=== PATIENT | female | born 1990 | race Caucasian/White ===

== ENCOUNTER 2019-05-11 20:15 | Emergency (ER) | payer BC, MEDICAID ==
[~2019-05-11 20:15] MED LIST: INSU100V26 SQ
--- NOTE | 2019-05-11 20:26 | NUR ---
Pt called from waiting room, no answer. Pt not found in ED waiting room, ED bathroom.
--- NOTE | 2019-05-11 20:48 | NUR ---
Pt called from waiting room, no answer; pt not found in ED waiting room or ED bathroom or outside ED entrance
--- NOTE | 2019-05-11 20:50 | NUR ---
Pt assumed to have left without being seen.
== END 2019-05-11 20:25 | disposition left against medical advice (07) ==
LOC: SED 20:15
DX: L02.91 Cutaneous abscess, unspecified (principal); Z53.21 Procedure and treatment not carried out due to patient leaving prior to being seen by health care provider